=== PATIENT | female | born 1950 | race Two or more races ===

== ENCOUNTER 2018-03-09 14:01 | Emergency (ER) | payer OTHER ==
[~2018-03-09] VITALS: Ht 170.2 cm; Wt 77.1 kg
[2018-03-09] MEDS ORDERED: LIPITOR40 MG (14:47)
== END 2018-03-09 21:07 | disposition home or self-care (01) ==
LOC: ER 14:01
DX: M75.51 Bursitis of right shoulder (principal); M94.0 Chondrocostal junction syndrome [Tietze]

== ENCOUNTER 2020-10-15 09:06 | Outpatient (CLI) | payer OTHER ==
[~2020-10-15 09:06] MED LIST: LIPITOR40 MG
== END 2020-10-15 09:14 | disposition home or self-care (01) ==
LOC: LAB 09:06
PROVIDERS: ATTEND Radiology Diagnostic Radiology
DX: N20.0 Calculus of kidney (principal)

== ENCOUNTER → 2020-10-22 | Outpatient (CLI) | payer OTHER | END | disposition home or self-care (01) | LOC: TOM 07:33 | PROVIDERS: ATTEND Neurological Surgery | DX: M51.37 Other intervertebral disc degeneration, lumbosacral region (principal); M48.061 Spinal stenosis, lumbar region without neurogenic claudication; M96.1 Postlaminectomy syndrome, not elsewhere classified | CPT/HCPCS: 72131; 72158; A9575; 72149 ==

== ENCOUNTER 2024-02-21 19:46 | Emergency (ER) | payer OTHER ==
[~2024-02-21] VITALS: Ht 160 cm; Wt 63.5 kg
== END 2024-02-21 23:51 | disposition home or self-care (01) ==
LOC: ER 19:48
DX: M25.512 Pain in left shoulder (principal); Z88.0 Allergy status to penicillin